=== PATIENT | female | born 1950 | race Caucasian/White ===

== ENCOUNTER 2016-06-08 12:14 | Observation (INO) | payer MEDICARE, OTHER ==
--- NOTE | 2016-06-08 12:33 | ER Document Report ---
ED Medical Screen (RME) - General Stated Complaint: FLANK PAIN Time seen by provider: 12:28 Mode of Arrival: Wheelchair Information source: Patient Notes: 65-year-old female complaining of left thoracic back pain which is tender in the periscapular muscles in the thoracic left-sided muscles. Hurts more when she leans forward and when you palpate the muscle. It does come in spasms. It makes her left arm numb at times. It started at midnight last night Pain better with heat. STabbing pain. Hx PE but does not have the shortness of breath she had then. TRAVEL OUTSIDE OF THE [place] IN LAST 30 DAYS: No - Related Data Allergies/Adverse Reactions: Sulfa (Sulfonamide Antibiotics) Allergy (Verified 06/08/16 12:25) acetaminophen [From Percocet] Adverse Reaction (Verified 06/08/16 12:25) VOMITING oxycodone [From Percocet] Adverse Reaction (Verified 06/08/16 12:25) VOMITING Past Medical History - Past Medical History Cardiac Medical History: Reports: Hx Hypertension Denies: Hx Heart Attack Pulmonary Medical History: Denies: Hx Asthma Neurological Medical History: Denies: Hx Cerebrovascular Accident, Hx Seizures GI Medical History: Denies: Hx Hepatitis, Hx Hiatal Hernia, Hx Ulcer Infectious Medical History: Denies: Hx Hepatitis Past Surgical History: Denies: Hx Mastectomy, Hx Open Heart Surgery, Hx Pacemaker Physical Exam - Vital signs Vitals: Temp Pulse Resp BP Pulse Ox 97.8 F 65 16 136/81 H 100 06/08/16 12:19 06/08/16 12:19 06/08/16 12:19 06/08/16 12:19 06/08/16 12:19 Course - Vital Signs Vital signs: Temp Pulse Resp BP Pulse Ox 97.8 F 65 16 136/81 H 100 06/08/16 12:19 06/08/16 12:19 06/08/16 12:19 06/08/16 12:19 06/08/16 12:19
[2016-06-08] MEDS ORDERED: ONDANSETRON 4 MG TAB.RAPDIS PO ONE (12:36)
[2016-06-08] MEDS ORDERED: HYDROCODONE/ACETAMINOPHEN 5-325 MG TABLET PO ONE (12:37)
[2016-06-08] MEDS ORDERED: MORPHINE SULFATE 10 MG/ML INJ IV ONE (13:16)
[2016-06-08 14:17] LABS: ABSOLUTE BASOPHILS # (AUTO) 0.1 10^3/uL (0.0-0.2); ABSOLUTE EOSINOPHILS # (AUTO) 0.3 10^3/uL (0.0-0.6); ABSOLUTE LYMPHOCYTES (AUTO) 3.5 10^3/uL (0.5-4.7); ABSOLUTE MONOCYTES (AUTO) 0.7 10^3/uL (0.1-1.4); ABSOLUTE NEUT (AUTO) 4.9 10^3/uL (1.7-8.2); BASOPHILS % (AUTO) 0.7 % (0-2); EOSINOPHILS % (AUTO) 2.7 % (0-6); HEMATOCRIT 35.8 % (36.0-47.0); HEMOGLOBIN 12.3 g/dL (12.0-15.5); HGB HCT DIFFERENCE 1.1; LYMPHOCYTES % (AUTO) 37.2 % (13-45); MEAN CORPUSCULAR HEMOGLOBIN 28.2 pg (27.0-33.4); MEAN CORPUSCULAR HGB CONC 34.4 g/dL (32.0-36.0); MEAN CORPUSCULAR VOLUME 82 fl (80-97); MONOCYTES % (AUTO) 7.6 % (3-13); RED BLOOD COUNT 4.37 10^6/uL (3.72-5.28); RED CELL DISTRIBUTION WIDTH 14.4 % (11.5-14.0); SEGMENTED NEUTROPHILS % (AUTO) 51.8 % (42-78); WHITE BLOOD COUNT 9.4 10^3/uL (4.0-10.5)
[2016-06-08 14:30] LABS: ALANINE AMINOTRANSFERASE 26 U/L (9-52); ALBUMIN 3.6 g/dL (3.5-5.0); ALKALINE PHOSPHATASE 89 U/L (38-126); ANION GAP 12 (5-19); ASPARTATE AMINO TRANSFERASE 17 U/L (14-36); BILIRUBIN,TOTAL 0.6 mg/dL (0.2-1.3); BLOOD UREA NITROGEN 13 mg/dL (7-20); CARBON DIOXIDE 26 mmol/L (22-30); CHLORIDE 95 mmol/L (98-107); CREATINE KINASE 38 U/L (30-135); CREATININE RESULT 0.71 mg/dL (0.52-1.25); GLUCOSE 135 mg/dL (75-110); POTASSIUM 3.8 mmol/L (3.6-5.0); SODIUM 132.8 mmol/L (137-145); TOTAL PROTEIN 6.3 g/dL (6.3-8.2)
[2016-06-08 14:41] LABS: PROTHROMBIN TIME 13.3 SEC (11.4-15.4)
[2016-06-08 14:42] LABS: PARTIAL THROMBOPLASTIN TIME 31.1 SEC (23.5-35.8)
[2016-06-08 14:55] LABS: CREATINE KINASE MB < 0.22 ng/mL (<4.55); TROPONIN I < 0.012 ng/mL
[2016-06-08] MEDS ORDERED: NORMAL SALINE 1000 ML 500 ML IV ONE (16:03)
[2016-06-08] MEDS ORDERED: ASPIRIN 81 MG TABLET, CHEWABLE PO ONE (16:03)
--- NOTE | 2016-06-08 16:04 | ER Document Report ---
ED Cardiac - General Chief Complaint: Back Pain Stated Complaint: FLANK PAIN Mode of Arrival: Wheelchair Information source: Patient Notes: 65-year-old female presents to the emergency department complaining of left upper back pain. Patient reports sharp/stabbing pain to left upper back that radiates through to her left front chest and left arm. States pain feels like it is behind her heart. Reports pain is intermittent without aggravating or relieving factors and began yesterday evening. States associated shortness of breath when pain is at its worse. Patient reports history of hypertension, type II diabetes, and bilateral PEs diagnosed approximately 14 months ago currently on Eliquis. Denies fever or recent illness, nausea or vomiting, hemoptysis, or diaphoresis. TRAVEL OUTSIDE OF THE [place] IN LAST 30 DAYS: No - HPI Patient complains to provider of: Chest pain, Other - Back pain Was the onset of pain: Sudden Is the pain a: New problem Chest pain location: Back, Under breast Quality of pain: Sharp Chest pain radiation location: Left arm Severity now: Mild Severity at worst: Moderate Pain level currently: 2 Chest pain precipitating factors: At Rest Cardiac risk factors: Diabetes Positive cardiac history: No Exacerbated by: Denies Relieved by: Nothing Similar symptoms previously: No Recently seen / treated by doctor: No - Related Data Allergies/Adverse Reactions: Sulfa (Sulfonamide Antibiotics) Allergy (Verified 06/08/16 12:25) acetaminophen [From Percocet] Adverse Reaction (Verified 06/08/16 12:25) VOMITING oxycodone [From Percocet] Adverse Reaction (Verified 06/08/16 12:25) VOMITING Home Medications: Current Home Medications Apixaban [Eliquis 2.5 mg Tablet] 2.5 mg PO Q12 06/08/16 [History] Atorvastatin Calcium [Lipitor 10 mg Tablet] 10 mg PO QHS 06/08/16 [History] Linagliptin/Metformin HCl [Jentadueto 2.5 mg-850 mg Tab] 1 tab PO BID 06/08/16 [ History] Valsartan/Hydrochlorothiazide [Valsartan-Hctz 320-12.5 mg Tab] 1 tab PO DAILY [History] Past Medical History - General Information source: Patient - Social History Smoking Status: Never Smoker Frequency of alcohol use: None Drug Abuse: None Lives with: Family Family History: Reviewed & Not Pertinent Patient has suicidal ideation: No Patient has homicidal ideation: No - Past Medical History Cardiac Medical History: Reports: Hx Hypertension, Hx Pulmonary Embolism Denies: Hx Heart Attack Pulmonary Medical History: Denies: Hx Asthma Neurological Medical History: Denies: Hx Cerebrovascular Accident, Hx Seizures Endocrine Medical History: Reports: Hx Diabetes Mellitus Type 2 GI Medical History: Denies: Hx Hepatitis, Hx Hiatal Hernia, Hx Ulcer Infectious Medical History: Denies: Hx Hepatitis Past Surgical History: Reports: Hx Cholecystectomy. Denies: Hx Mastectomy, Hx Open Heart Surgery, Hx Pacemaker - Immunizations Hx Diphtheria, Pertussis, Tetanus Vaccination: Yes Review of Systems - Review of Systems Constitutional: No symptoms reported EENT: No symptoms reported Cardiovascular: See HPI Respiratory: See HPI Gastrointestinal: No symptoms reported Genitourinary: No symptoms reported Female Genitourinary: No symptoms reported Musculoskeletal: No symptoms reported Skin: No symptoms reported Hematologic/Lymphatic: No symptoms reported Neurological/Psychological: No symptoms reported -: Yes All other systems reviewed and negative Physical Exam - Vital signs Vitals: Temp Pulse Resp BP Pulse Ox 97.8 F 65 16 136/81 H 100 06/08/16 12:19 06/08/16 12:19 06/08/16 12:19 06/08/16 12:19 06/08/16 12:19 Interpretation: Normal - General General appearance: Appears well, Alert In distress: None - HEENT Head: Normocephalic, Atraumatic Eyes: Normal Pupils: PERRL - Respiratory Respiratory status: No respiratory distress Chest status: Nontender Breath sounds: Normal - CTAB Chest palpation: Normal - Cardiovascular Rhythm: Regular Heart sounds: Normal auscultation Murmur: No Pulses: Normal: Radial, Posterior tibial, Dorsalis pedis Normal capillary refill: Yes - Abdominal Inspection: Normal Distension: No distension Bowel sounds: Normal Tenderness: Nontender Organomegaly: No organomegaly - Back Back: Normal, Nontender - Extremities General upper extremity: Normal inspection, Nontender, Normal color, Normal ROM , Normal strength, Normal temperature. No: Tender, Edema General lower extremity: Normal inspection, Nontender, Normal color, Normal ROM , Normal strength, Normal temperature, Normal weight bearing. No: Tender, Edema , Ashok's sign - Neurological Neuro grossly intact: Yes Cognition: Normal Orientation: AAOx4 [place] Coma Scale Eye Opening: Spontaneous Ronald Coma Scale Verbal: Oriented Ronald Coma Scale Motor: Obeys Commands [place] Coma Scale Total: 15 Speech: Normal Motor strength normal: LUE, RUE, LLE, RLE Sensory: Normal - Psychological Associated symptoms: Normal affect, Normal mood - Skin Skin Temperature: Warm Skin Moisture: Dry Skin Color: Normal Course - Re-evaluation Re-evalutation: 06/08/16 16:10 Patient hemodynamically stable, in no distress, afebrile. Pain resolved after dose of morphine. No significant findings on labs and negative cardiac enzymes. No acute PE, aneurysm, or dissection, on CTA. Patient presentation and findings discussed with patient's primary care provider Dr. Roa who agrees to assume care, evaluate patient in the ED, and admit to telemetry observation unit. Findings and plan discussed with patient and family member who verbalize understanding and agree with plan. - Vital Signs Vital signs: Temp Pulse Resp BP Pulse Ox 97.5 F 61 14 116/70 98 06/08/16 16:55 06/08/16 17:41 06/08/16 16:55 06/08/16 16:55 06/08/16 16:55 - Laboratory Result Diagrams: 06/08/16 13:58 06/08/16 13:58 Laboratory results interpreted by me: 06/08/16 06/08/16 13:58 13:58 Hct 35.8 L RDW 14.4 H Sodium 132.8 L Chloride 95 L Glucose 135 H - Diagnostic Test Radiology reviewed: Image reviewed, Reports reviewed - EKG Interpretation by Sc EKG shows normal: Sinus rhythm, [place], Intervals, QRS Complexes, ST-T Waves - Nonspecific T-wave changes. No ST elevation Rate: Normal Rhythm: NSR When compared to previous EKG there are: Changes noted Discharge - Discharge Clinical Impression: Chest pain Qualifiers: Chest pain type: unspecified Qualified Code(s): R07.9 - Chest pain, unspecified Condition: Stable Disposition: ADMITTED OBSERVATION Admitting Provider: Crispin Unit Admitted: Telemetry
--- NOTE | 2016-06-08 16:58 | EKG REPORT ---
SEVERITY:- ABNORMAL ECG - SINUS RHYTHM LVH BY VOLTAGE NONSPECIFIC T ABNORMALITIES, INFERIOR LEADS : Confirmed by: Ronda Willard MD 08-Jun-2016 16:57:24
[2016-06-08] MEDS ORDERED: INFLUENZA ADLT QUAD (36MOS+) 2016-17 VAC 0.5 ML SYR IM PRN (18:12)
[2016-06-08] MEDS ORDERED: CYCLOBENZAPRINE HCL 10 MG TABLET PO PRN (18:46)
[2016-06-08] MEDS ORDERED: GLUCAGON,HUMAN RECOMB 1 MG INJ IM PRN (18:48)
[2016-06-08] MEDS ORDERED: DEXTROSE 40% GEL 15 GM TUBE PO PRN ×2 (18:48)
[2016-06-08] MEDS ORDERED: DEXTROSE 50%-WATER 25 GM/50 ML DISP.SYRIN IV PRN ×2 (18:48)
[2016-06-08] MEDS ORDERED: INSULIN LISPRO 100 UNIT/ML 3 ML VIAL SUBCUT PRN (18:48)
[2016-06-08] MEDS: HYDROCODONE/ACETAMINOPHEN 5-325 MG TABLET PO PRN (19:13)
--- NOTE | 2016-06-08 19:19 | PDOC H&P ---
History of Present Illness Admission Date/PCP: 06/08/16 16:28 TOMI EFRENDANDYGreg Patient complains of: Left upper back pain History of Present Illness: REVA HIGGINS is a 65 year old female with multiple medical issues including pulmonary embolism on Eliquis therapy. She presented to ED on wheelchair with complain of left upper back pain several hours prior to presentation. Patient reported that pain is worsen with leaning forward, improved with application of heat pad. She denied any significant associated SOB, palpitation, diaphoresis, nausea or vomiting. Her initial evaluation in the ED was significant for reproducible, localized pain to left periscapular region. She was initially management with IV Morphine and oral Blanco. She reported improvement in her pain subsequently. Her CTA chest was unrevealing for acute or recurrent Pulmonary Embolism. No identifiable aortic dilatation, dissection or aneurysm. Due to her associated comorbidities including hypertension, hyperlipidemia, obstructive sleep apnea and diabetes mellitus type 2 there was concern expressed by ED provider regarding discharging patient home without further evaluation for possible ACS. In view of her circumstance she has been accepted to my service on observation bed status. Past Medical History Cardiac Medical History: Reports: Hypertension Denies: Myocardial Infarction Pulmonary Medical History: Denies: Asthma Neurological Medical History: Denies: Seizures Endocrine Medical History: Reports: Diabetes Mellitus Type 2 GI Medical History: Denies: Hepatitis, Hiatal Hernia Psychiatric Medical History: Denies: Depression Hematology: Denies: Anemia, Sickle Cell Disease Past Surgical History Past Surgical History: Reports: Cholecystectomy Denies: Amputation, Mastectomy, Pacemaker Social History Smoking Status: Never Smoker Frequency of Alcohol Use: Rare Hx Recreational Drug Use: No Hx Prescription Drug Abuse: No - Advance Directive Resuscitation Status: Full Code Family History Family History: Reviewed & Not Pertinent Parental Family History Reviewed: Yes Children Family History Reviewed: Yes Sibling(s) Family History Reviewed.: Yes Medication/Allergy Home Medications: Apixaban [Eliquis 2.5 mg Tablet] 2.5 mg PO Q12 06/08/16 Atorvastatin Calcium [Lipitor 10 mg Tablet] 10 mg PO QHS 06/08/16 Linagliptin/Metformin HCl [Jentadueto 2.5 mg-850 mg Tab] 1 tab PO BID 06/08/16 Valsartan/Hydrochlorothiazide [Valsartan-Hctz 320-12.5 mg Tab] 1 tab PO DAILY 01 /10/17 Allergies/Adverse Reactions: Sulfa (Sulfonamide Antibiotics) Allergy (Verified 06/08/16 12:25) acetaminophen [From Percocet] Adverse Reaction (Verified 06/08/16 12:25) VOMITING oxycodone [From Percocet] Adverse Reaction (Verified 06/08/16 12:25) VOMITING Review of Systems All systems: reviewed and no additional remarkable complaints except as stated Physical Exam Vital Signs: Temp Pulse Resp BP Pulse Ox 97.5 F 61 14 116/70 98 06/08/16 16:55 06/08/16 17:41 06/08/16 16:55 06/08/16 16:55 06/08/16 16:55 Intake & Output 06/07/16 06/08/16 06/09/16 06:59 06:59 06:59 Intake Total 0 Balance 0 General appearance: PRESENT: no acute distress, cooperative, obese Head exam: PRESENT: atraumatic, normocephalic Eye exam: PRESENT: conjunctiva pink, EOMI, PERRLA. ABSENT: scleral icterus Ear exam: PRESENT: normal external ear exam Mouth exam: PRESENT: moist, tongue midline Throat exam: ABSENT: post pharyngeal erythema, tonsillar erythema, tonsillar exudate, tonsillogmegaly, other Neck exam: ABSENT: carotid bruit, full ROM, JVD, lymphadenopathy, meningismus, tenderness, thyromegaly, tracheal deviation, tracheostomy, other Respiratory exam: ABSENT: accessory muscle use, chest wall tenderness, clear to auscultation jhon, crackles, decreased breath sounds, prolonged expiratory phas, rales, retraction, rhonchi, stridor, symmetrical, tachypnea, unlabored, wheezes , other Cardiovascular exam: ABSENT: bradycardia, clicks, diastolic murmur, gallop, irregular rhythm, RRR, rubs, +S1, +S2, systolic murmur, tachycardia, other Pulses: PRESENT: normal dorsalis pedis pul, +2 pedal pulses bilateral Vascular exam: PRESENT: normal capillary refill GI/Abdominal exam: PRESENT: normal bowel sounds, soft. ABSENT: distended, guarding, mass, organolmegaly, rebound, tenderness Rectal exam: PRESENT: deferred Extremities exam: PRESENT: full ROM. ABSENT: left AKA, right AKA, left BKA, right BKA, calf tenderness, joint swelling, pedal edema, tenderness, other Musculoskeletal exam: PRESENT: ambulatory, full ROM, normal inspection Additional comments: There is elicited tenderness to palpation over left scapular muscle region with palpable muscle spasm. Neurological exam: PRESENT: alert, awake, oriented to person, oriented to place , oriented to time, oriented to situation, CN II-XII grossly intact. ABSENT: motor sensory deficit Psychiatric exam: PRESENT: appropriate affect, normal mood. ABSENT: homicidal ideation, suicidal ideation Skin exam: PRESENT: dry, intact, warm. ABSENT: cyanosis, rash Results Impressions: Chest/Abdomen CTA 06/08/16 13:16 IMPRESSION: Minimal bibasilar atelectasis Diffuse thoracic spondylotic change throughout the thoracic spine No CT angio evidence of acute pulmonary emboli or thoracic aortic dissection Assessment & Plan - Diagnosis (1) Upper back pain on left side Is this a current diagnosis for this admission?: YesPlan: Rule out for any acute coronary syndrome in view of comorbidities. (2) Trapezius muscle spasm Is this a current diagnosis for this admission?: YesPlan: Start on Blanco and Cyclobenzaprine therapy. Encourage adequate oral hydration. Rest as tolerated. (3) HTN (hypertension) Qualifiers: Hypertension type: essential hypertension Qualified Code(s): I10 - Essential (primary) hypertension Is this a current diagnosis for this admission?: Yes (4) HLD (hyperlipidemia) Qualifiers: Hyperlipidemia type: pure hypercholesterolemia Qualified Code(s): E78.00 - Pure hypercholesterolemia, unspecified; E78.0 - Pure hypercholesterolemia Is this a current diagnosis for this admission?: Yes (5) Diabetes mellitus type 2 in obese Is this a current diagnosis for this admission?: Yes (6) Pulmonary embolism on long-term anticoagulation therapy Is this a current diagnosis for this admission?: Yes (7) Obstructive sleep apnea of adult Is this a current diagnosis for this admission?: Yes (8) Osteoarthritis of multiple joints Qualifiers: Osteoarthritis type: primary Qualified Code(s): M15.0 - Primary generalized (osteo)arthritis Is this a current diagnosis for this admission?: Yes - Time Time Spent: 50 to 70 Minutes Medications reviewed and adjusted accordingly: Yes Anticipated discharge: Home - Inpatient Certification Based on my medical assessment, after consideration of the patient's comorbidities, presenting symptoms, or acuity I expect that the services needed warrant INPATIENT care.: No I certify that my determination is in accordance with my understanding of Medicare's requirements for reasonable and necessary INPATIENT services [42 CFR 412.3e].: No Post Hospital Care: D/C Alcoholism Worker Documentation - Plan Summary Plan Summary: see admitting physician orders.
[2016-06-08] MEDS ORDERED: ONDANSETRON HCL INJ/PF 4 MG/2 ML SDV IV PRN (20:18)
[2016-06-08 20:51] LABS: CREATINE KINASE MB < 0.22 ng/mL (<4.55); TROPONIN I < 0.012 ng/mL
[2016-06-08] MEDS: APIXABAN 2.5 MG TABLET PO SCH (21:24)
[2016-06-08] MEDS ORDERED: ATORVASTATIN CALCIUM 10 MG TABLET PO SCH (22:00)
[2016-06-09 03:20] LABS: CREATINE KINASE MB < 0.22 ng/mL (<4.55); TROPONIN I < 0.012 ng/mL
[2016-06-09] MEDS: HYDROCODONE/ACETAMINOPHEN 5-325 MG TABLET PO PRN ×2 (03:38→11:08)
[2016-06-09] MEDS ORDERED: LANSOPRAZOLE 30 MG TAB.RAP.DR PO SCH (06:00)
[2016-06-09 09:16] LABS: CREATINE KINASE MB < 0.22 ng/mL (<4.55); TROPONIN I < 0.012 ng/mL
[2016-06-09] MEDS: APIXABAN 2.5 MG TABLET PO SCH (09:54)
[2016-06-09] MEDS ORDERED: VALSARTAN PO SCH (10:00)
[2016-06-09] MEDS ORDERED: VALSARTAN 160 MG TABLET PO SCH (10:00)
[2016-06-09] MEDS ORDERED: HYDROCHLOROTHIAZIDE PO SCH (10:00)
[2016-06-09] MEDS ORDERED: [UNRECOGNIZED DRUG - OTHER] PO SCH (10:00)
[2016-06-09] MEDS ORDERED: METFORMIN HCL PO SCH (10:00)
[2016-06-09] MEDS ORDERED: LINAGLIPTIN PO SCH ×2 (10:00→17:00)
[2016-06-09] MEDS ORDERED: HYDROCHLOROTHIAZIDE 12.5 MG CAPSULE PO SCH (10:00)
--- NOTE | 2016-06-09 13:40 | EKG REPORT ---
SEVERITY:- BORDERLINE ECG - SINUS RHYTHM BORDERLINE LEFT AXIS DEVIATION BORDERLINE T ABNORMALITIES, INFERIOR LEADS : Confirmed by: Ronda Willard MD 09-Jun-2016 13:38:37
--- NOTE | 2016-06-09 14:33 | Physician Advisory Note ---
Physician Advisor ProgressNote .: Pursuant to the plan for [facility], I have reviewed the medical record for this patient. Physician Advisor Statement: Don't forget to explicitly state what you believe is the cause of the CP. - Coders aren't allowed to infer anything, so have to query if causes are not spelled out as causes. Thanks! CK
--- NOTE | 2016-06-09 15:21 | PDOC DISCHARGE SUMMARY ---
General - Admit/Disc Date/PCP Admission Date/Primary Care Provider: 06/08/16 18:39 TOMI MANJINDER Discharge Date: 06/09/16 - Discharge Diagnosis (1) Upper back pain on left side Is this a current diagnosis for this admission?: YesSummary: Patient's reported chest pain is most likely a result of trapezius muscle spasm musculoskeletal pain (2) Trapezius muscle spasm Is this a current diagnosis for this admission?: YesSummary: most likely source of her reported chest pain. (3) HTN (hypertension) Is this a current diagnosis for this admission?: Yes (4) HLD (hyperlipidemia) Is this a current diagnosis for this admission?: Yes (5) Diabetes mellitus type 2 in obese Is this a current diagnosis for this admission?: Yes (6) Pulmonary embolism on long-term anticoagulation therapy Is this a current diagnosis for this admission?: Yes (7) Obstructive sleep apnea of adult Is this a current diagnosis for this admission?: Yes (8) Osteoarthritis of multiple joints Is this a current diagnosis for this admission?: Yes - Additional Information Resuscitation Status: Full Code Discharge Diet: As Tolerated Discharge Activity: Activity As Tolerated Home Medications: Apixaban [Eliquis 2.5 mg Tablet] 2.5 mg PO Q12 06/08/16 Atorvastatin Calcium [Lipitor 10 mg Tablet] 10 mg PO QHS 06/08/16 Linagliptin/Metformin HCl [Jentadueto 2.5 mg-850 mg Tab] 1 tab PO BID 06/08/16 Valsartan/Hydrochlorothiazide [Valsartan-Hctz 320-12.5 mg Tab] 1 tab PO DAILY Cyclobenzaprine HCl [Flexeril 10 mg Tablet] 5 mg PO Q8HP PRN #14 tablet Hydrocodone/Acetaminophen [[place] 5-325 mg Tablet] 1 tab PO Q6HP PRN #20 tablet 06/09/16 Ondansetron HCl [Zofran 4 mg Tablet] 1 tab PO Q4H PRN #10 tablet 06/09/16 History of Present Illness History of Present Illness: REVA HIGGINS is a 65 year old female with multiple medical issues including pulmonary embolism on Eliquis therapy. She presented to ED on wheelchair with complain of left upper back pain several hours prior to presentation. Patient reported that pain is worsen with leaning forward, improved with application of heat pad. She denied any significant associated SOB, palpitation, diaphoresis, nausea or vomiting. Her initial evaluation in the ED was significant for reproducible, localized pain to left periscapular region. She was initially management with IV Morphine and oral [place]. She reported improvement in her pain subsequently. Her CTA chest was unrevealing for acute or recurrent Pulmonary Embolism. No identifiable aortic dilatation, dissection or aneurysm. Due to her associated comorbidities including hypertension, hyperlipidemia, obstructive sleep apnea and diabetes mellitus type 2 there was concern expressed by ED provider regarding discharging patient home without further evaluation for possible ACS. In view of her circumstance she has been accepted to my service on observation bed status. Hospital Course Hospital Course: Serial cardiac enzymes and repeat EKG did not support any significant cardiac source gfor her chest pain. Her physical examination did revealed trapezius muscle spasm. Patient reported improvement in her symptoms with cyclobenzaprine and opiate therapy. Her reported nausea after [place] administration did improve with Zofran usage. She remain pain free presently and agreeable to discharge plan. She will be discharged home today and follow up in office as instructed. Physical Exam Vital Signs: Temp Pulse Resp BP Pulse Ox 98.1 F 66 20 111/47 L 98 06/09/16 08:02 06/09/16 14:00 06/09/16 08:02 06/09/16 08:02 06/09/16 08:02 Intake & Output 06/08/16 06/09/16 06/10/16 06:59 06:59 06:59 Intake Total 640 Balance 640 General appearance: PRESENT: no acute distress, well-developed, well-nourished Head exam: PRESENT: atraumatic, normocephalic Eye exam: PRESENT: conjunctiva pink, EOMI, PERRLA. ABSENT: scleral icterus Ear exam: PRESENT: normal external ear exam Mouth exam: PRESENT: moist, tongue midline Teeth exam: ABSENT: dental caries, dental tenderness, edentulous, poor dentation , other Throat exam: ABSENT: post pharyngeal erythema, tonsillar erythema, tonsillar exudate, tonsillogmegaly, other Neck exam: PRESENT: full ROM. ABSENT: carotid bruit, JVD, lymphadenopathy, thyromegaly Respiratory exam: ABSENT: accessory muscle use, chest wall tenderness, clear to auscultation jhon, crackles, decreased breath sounds, prolonged expiratory phas, rales, retraction, rhonchi, stridor, symmetrical, tachypnea, unlabored, wheezes , other Cardiovascular exam: PRESENT: RRR. ABSENT: diastolic murmur, rubs, systolic murmur Pulses: PRESENT: normal dorsalis pedis pul, +2 pedal pulses bilateral Vascular exam: PRESENT: normal capillary refill GI/Abdominal exam: PRESENT: normal bowel sounds, soft. ABSENT: distended, guarding, mass, organolmegaly, rebound, tenderness Rectal exam: PRESENT: deferred Extremities exam: PRESENT: full ROM Musculoskeletal exam: PRESENT: ambulatory, full ROM, normal inspection Neurological exam: PRESENT: alert, awake, oriented to person, oriented to place , oriented to time, oriented to situation, CN II-XII grossly intact. ABSENT: motor sensory deficit Psychiatric exam: PRESENT: appropriate affect, normal mood. ABSENT: homicidal ideation, suicidal ideation Results Laboratory Results: 06/08/16 06/08/16 06/09/16 20:01 20:01 02:00 Creatine Kinase 43 36 CK-MB (CK-2) < 0.22 Troponin I < 0.012 06/09/16 06/09/16 06/09/16 02:00 08:20 08:20 Creatine Kinase 38 CK-MB (CK-2) < 0.22 < 0.22 Troponin I < 0.012 < 0.012 Impressions: Chest/Abdomen CTA 06/08/16 13:16 IMPRESSION: Minimal bibasilar atelectasis Diffuse thoracic spondylotic change throughout the thoracic spine No CT angio evidence of acute pulmonary emboli or thoracic aortic dissection Qualifiers PATEINT BEING DISCHARGED WITH ANY OF THE FOLLOWING DIAGNOSIS?: No Plan Discharge Plan: See attending physician discharge orders. Time Spent: Less than 30 Minutes
[2016-06-09 16:22] VITALS: BP 99/47
[2016-06-09] MEDS ORDERED: METFORMIN PO SCH (17:00)
== END 2016-06-09 17:11 | disposition home or self-care (01) ==
LOC: ER 12:14 → EH 16:28 → UNDOADMOB 16:28 → EH 17:20 → 4S 17:20
PROVIDERS: ADMIT Internal Medicine Geriatric Medicine; ATTEND Internal Medicine Geriatric Medicine
DX: M54.6 Pain in thoracic spine (principal); M62.830 Muscle spasm of back; I10 Essential (primary) hypertension; E78.5 Hyperlipidemia, unspecified; E11.9 Type 2 diabetes mellitus without complications; E66.9 Obesity, unspecified; Z86.711 Personal history of pulmonary embolism; Z79.01 Long term (current) use of anticoagulants; Z79.84 Long term (current) use of oral hypoglycemic drugs; G47.33 Obstructive sleep apnea (adult) (pediatric); M19.90 Unspecified osteoarthritis, unspecified site
CPT/HCPCS: 93005 ×2; 99285; 96361; 96374; 36415 ×2; 82553 ×2; 82962 ×2; 82550 ×2; 85025; 85610; 85730; 80053; 84484 ×2; 71275; 93010 ×2; G0378 ×2; A9270 ×11; J2270; J2405; J7030; S0119

== ENCOUNTER 2017-02-03 07:11 | Day surgery (SDC) | payer MEDICARE, OTHER ==
[~2017-02-03 07:11] MED LIST: KETOROLAC TROMETHAMINE 0.45% 4 DROP/0.4 ML DROPERETTE OS PRN
[2017-02-03] MEDS: BESIFLOXACIN HCL 0.6% OPH SUSP 5 ML BOTTLE OS PRN ×4 (07:17→08:29)
[2017-02-03] MEDS: TROPICAMIDE 1% OPH SOLN 3 ML OS PRN ×3 (07:17→07:37)
[2017-02-03] MEDS: CYCLOPENTOLATE 0.2%/PHENYLEPHRINE 1% OPH SOLN 2 ML OS PRN ×3 (07:17→07:37)
[2017-02-03] MEDS: TETRACAINE HCL 0.5% OPH SOLN 2 ML OS PRN ×4 (07:18→07:59)
[2017-02-03] MEDS ORDERED: LIDOCAINE 1% INJ-PF (10 MG/ML) 30 ML SDV ONE (07:23)
[2017-02-03] MEDS ORDERED: CHONDR SU A NA/HYALUR INTRAOC KIT (SURGICARE) ONE (07:23)
[2017-02-03] MEDS ORDERED: MIDAZOLAM 2 MG/2 ML INJ ONE (07:51)
[2017-02-03] MEDS ORDERED: FENTANYL CITRATE INJ/PF 100 MCG/2 ML AMPUL ONE (07:52)
[2017-02-03] MEDS: PHENYLEPHRINE/KETOROLAC 1%-0.3% 4 ML VIAL ONE ×2 (08:12)
[2017-02-03] MEDS ORDERED: ONDANSETRON HCL INJ/PF 4 MG/2 ML SDV ONE (09:32)
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
--- NOTE | 2017-02-03 16:22 | [facility] OPERATIVE REPORT E ---
[facility] Operative Report NAME: REVA HIGGINS AGE: 66Y DATE OF SURGERY: 02/03/2017 ROOM: PREOPERATIVE DIAGNOSES: 1. CATARACT, LEFT EYE. 2. PUPIL MIOSIS OF THE LEFT EYE. POSTOPERATIVE DIAGNOSES: 1. CATARACT, LEFT EYE. 2. PUPIL MIOSIS OF THE LEFT EYE. OPERATION: Complex cataract extraction; use of the Malyugin ring due to poor pupillary dilation. SURGEON: NARGIS WOOD M.D. ANESTHESIA: Topical. PROCEDURE: After obtaining appropriate consent, the patient's left eye was prepped and draped in sterile fashion as well as the surgeon in a sterile manner and cataract surgery was started. First a paracentesis blade was used to make a small side-port incision. Viscoelastic was used to inflate the anterior chamber. Next a 2.4 mm incision was made with the paracentesis blade. A continuous capsulorrhexis incision was made using a cystotome and Utrata forceps. Following this hydrodissection was carried out to make the lens fully loose and mobile and it was rotated 90 degrees. Following this, a fndkzb-uov-gjeqquk technique was used to phacoemulsify the lens with a CDE of 8.51. The remaining cortex was removed with irrigation/aspiration. Provisc was instilled into the capsular bag to inflate the bag. A SN60WF, 18.5 diopter lens was placed. The remaining viscoelastic material was removed with irrigation/aspiration. Following this, a 10-0 nylon suture was used to close the incision and it was found to be watertight. Vigamox was instilled in the eye and a protective shield was placed over the eye. The patient returned to the postoperative recovery in stable condition. Prior to making the capsulorrhexis, a Malyugin ring was inserted due to a very miotic pupil. This was removed at the end of the case. DICTATING PHYSICIAN: NARGIS WOOD M.D. [id number] PHY#: [id number] ID: [id number] JOB#: [id number] ACCT: [id number] cc:NARGIS WOOD M.D. >
== END 2017-02-03 09:11 | disposition home or self-care (01) ==
LOC: SC 07:11
PROVIDERS: ATTEND Internal Medicine
PROC: 08RK3JZ Replacement of Left Lens with Synthetic Substitute, Percutaneous Approach (ICD-10-PCS; principal; 2017-02-03 08:00)
DX: H25.813 Combined forms of age-related cataract, bilateral (principal); H57.03 Miosis; I10 Essential (primary) hypertension; E11.9 Type 2 diabetes mellitus without complications; E78.00 Pure hypercholesterolemia, unspecified; M19.90 Unspecified osteoarthritis, unspecified site; E78.5 Hyperlipidemia, unspecified; E66.9 Obesity, unspecified; Z88.2 Allergy status to sulfonamides; Z88.5 Allergy status to narcotic agent; Z79.01 Long term (current) use of anticoagulants; Z79.899 Other long term (current) drug therapy; Z86.711 Personal history of pulmonary embolism; Z68.36 Body mass index [BMI] 36.0-36.9, adult
CPT/HCPCS: 66982; 82962; V2632; J2250; J3490 ×2; A9270; J3010; J2405; C9447; 142

== ENCOUNTER → 2017-02-11 | Outpatient (CLI) | payer MEDICARE, OTHER ==
--- NOTE | 2017-02-11 13:10 | WOMENS IMAGING REPORT ---
EXAM DESCRIPTION: 3D SCREENING MAMMO BILAT COMPLETED DATE/TIME: 02/11/2017 12:52 pm REASON FOR STUDY: SCREENING MAMMO Z12.31 ENCNTR SCREEN MAMMOGRAM FOR MALIGNANT NEOPLASM OF SHANDA COMPARISON: 2015 TECHNIQUE: Standard craniocaudal and mediolateral oblique views of each breast recorded using digita l acquisition and breast tomosynthesis. LIMITATIONS: None. FINDINGS: No masses, calcifications or architectural distortion. No areas of suspicion. Read with the assistance of CAD. .[facility] - R2 Cenova Version 1.3 .[facility] Imaging - R2 Cenova Version 1.3 .[facility] Imaging - R2 Cenova Version 2.4 .[facility] [place] [place] - R2 Cenova Version 2.4 .[facility] - R2 Storyboard Artist Version 9.2 IMPRESSION: NORMAL MAMMOGRAM. BIRADS 1. BREAST DENSITY: b. There are scattered areas of fibroglandular density. BIRAD: 1 NEGATIVE RECOMMENDATION: ROUTINE SCREENING COMMENT: The patient has been notified of the results by letter per SA requirements. Additional no tification policies are in place for contacting patient with suspicious or incomplete findings. Quality ID #[id number]: The [employer] recommends an annual screening mammogram for women aged 40 years or over. This facility utilizes a reminder system to ensure that all patients receive reminder letters, and/or direct phone calls for appointments. This includes reminders for routine scr eening mammograms, diagnostic mammograms, or other Breast Imaging Interventions when appropriate. Th is patient will be placed in the appropriate reminder system. The [employer] (ACR) has developed recommendations for screening MRI of the breast s in certain patient populations, to be used in conjunction with mammography. Breast MRI surveillanc e may be appropriate for women with more than 20% lifetime risk of developing breast cancer as deter mined by genetic testing, significant family history of the disease, or history of mantle radiation f or Hodgkins Disease. ACR Practice Guidelines 2008. DBT Technology DBT is a type of tomographic mammography. With conventional mammography, overlapping breast tissue ma y make lesions difficult to detect, even with good compression. DBT uses an x-ray tube that rotates a round the breast, taking images at different angles. These images are then combined to create thin sl ices of the breast that the radiologist can view as a 3D reconstruction. The [employer] unit can perform full-field digital mammograms (2D imaging); or DBT (3D imaging); or both, in a combination mode that quickly performs both the mammogram and the tomosynthesis scan while the breast is still compressed. PQRS 6045F: Fluoroscopic imaging is not utilized for breast tomosynthesis. TECHNICAL DOCUMENTATION: FINDING NUMBER: (1) ASSESSMENT: (1) JOB ID: [id number] [employer]- All Rights Reserved
== END ==
LOC: WI 12:31
PROVIDERS: ATTEND Internal Medicine Geriatric Medicine
DX: Z12.31 Encounter for screening mammogram for malignant neoplasm of breast (principal)
CPT/HCPCS: 77063; G0202; 77067

== ENCOUNTER 2017-03-03 09:48 | Day surgery (SDC) | payer MEDICARE, OTHER ==
[~2017-03-03 09:48] MED LIST changes: +CHONDR SU A NA/HYALUR INTRAOC KIT (SURGICARE) ONE; +KETOROLAC TROMETHAMINE 0.45% 4 DROP/0.4 ML DROPERETTE OD PRN; -KETOROLAC TROMETHAMINE 0.45% 4 DROP/0.4 ML DROPERETTE OS PRN; +LIDOCAINE 1% INJ-PF (10 MG/ML) 30 ML SDV ONE; +PHENYLEPHRINE/KETOROLAC 1%-0.3% 4 ML VIAL ONE
[2017-03-03] MEDS: TETRACAINE HCL 0.5% OPH SOLN 2 ML OD PRN ×3 (10:06→10:39)
[2017-03-03] MEDS: CYCLOPENTOLATE 0.2%/PHENYLEPHRINE 1% OPH SOLN 2 ML OD PRN ×4 (10:07→10:29)
[2017-03-03] MEDS: TROPICAMIDE 1% OPH SOLN 3 ML OD PRN ×3 (10:07→10:29)
[2017-03-03] MEDS: BESIFLOXACIN HCL 0.6% OPH SUSP 5 ML BOTTLE OD PRN ×2 (10:08→11:06)
[2017-03-03] MEDS ORDERED: FENTANYL CITRATE INJ/PF 100 MCG/2 ML AMPUL ONE (10:26)
[2017-03-03] MEDS ORDERED: MIDAZOLAM 2 MG/2 ML INJ ONE (10:26)
--- NOTE | 2017-03-03 20:22 | [facility] OPERATIVE REPORT E ---
[facility] Operative Report NAME: REVA HIGGINS AGE: 66Y DATE OF SURGERY: 03/03/2017 ROOM: PREOPERATIVE DIAGNOSES: 1. Cataract, right eye. 2. Pupil miosis, right eye. POSTOPERATIVE DIAGNOSES: 1. Cataract, right eye. 2. Pupil miosis, right eye. OPERATION: Complex cataract extraction with use of a Malyugin ring due to poor pupillary dilation. SURGEON: NARGIS WOOD M.D. ANESTHESIA: Topical. PROCEDURE: After obtaining appropriate consent, the patient's right eye was prepped and draped in sterile fashion as well as the surgeon in a sterile manner and cataract surgery was started. First a paracentesis blade was used to make a small side-port incision. Viscoelastic was used to inflate the anterior chamber. Next a 2.4 mm incision was made with the paracentesis blade. A continuous capsulorrhexis incision was made using a cystotome and Utrata forceps. Following this hydrodissection was carried out to make the lens fully loose and mobile and it was rotated 90 degrees. Following this, a ysvcov-rdr-rkfqjqb technique was used to phacoemulsify the lens with a CDE of 10.04. The remaining cortex was removed with irrigation/aspiration. Provisc was instilled into the capsular bag to inflate the bag. A SN60WF, 20.5 diopter lens was placed. The remaining viscoelastic material was removed with irrigation/aspiration. Following this, a 10-0 nylon suture was used to close the incision and it was found to be watertight. Vigamox was instilled in the eye and a protective shield was placed over the eye. The patient returned to the postoperative recovery in stable condition. Prior to making *------* a Malyugin ring was inserted; this was due to poor pupillary dilation. This was removed at the end of the case. DICTATING PHYSICIAN: NARGIS WOOD M.D. [id number] 2011 PHY#: [id number] 2008 ID: [id number] JOB#: [id number] ACCT: [id number] cc:NARGIS WOOD M.D. >
--- NOTE | 2017-03-03 20:27 | DISCHARGE SUMMARY E ---
Discharge Summary NAME: REVA HIGGINS : 1950 AGE: 66Y ADMITTED: 03/03/2017 DISCHARGED: 03/03/2017 HISTORY OF PRESENT ILLNESS AND HOSPITAL COURSE: This is a 65-year-old female who underwent cataract extraction complex of the right eye. DIAGNOSES: 1. Cataract, right eye. 2. Pupil miosis requiring a Malyugin ring. HOSPITAL COURSE: The patient underwent surgery because she was having difficulty seeing fine print and TV. DISCHARGE INSTRUCTIONS: 1. She should be on a regular diet. 2. No bending at the waist and no heavy lifting. 3. She should use her Besivance, Ilevro, and Durezol at 3 p.m. and 8 p.m. and sleep with a rigid shield. 4. I will see her for her 1-day postoperative tomorrow. DICTATING PHYSICIAN: NARGIS WOOD M.D. [id number] 2017 PHY#: [id number] 2008 ID: [id number] JOB#: [id number] ACCT: [id number] cc:NARGIS WOOD M.D. >
== END 2017-03-03 11:38 | disposition home or self-care (01) ==
LOC: SC 09:48
PROVIDERS: ATTEND Internal Medicine
PROC: 08RJ3JZ Replacement of Right Lens with Synthetic Substitute, Percutaneous Approach (ICD-10-PCS; principal; 2017-03-03 11:00)
DX: H25.811 Combined forms of age-related cataract, right eye (principal); H57.03 Miosis; Z96.1 Presence of intraocular lens; I10 Essential (primary) hypertension; E11.9 Type 2 diabetes mellitus without complications; Z88.2 Allergy status to sulfonamides; Z88.5 Allergy status to narcotic agent; Z79.01 Long term (current) use of anticoagulants
CPT/HCPCS: 66982; 82962; V2632; J2250; J3490 ×2; A9270; J3010; C9447; 142

== ENCOUNTER → 2018-02-21 | Outpatient (CLI) | payer MEDICARE, OTHER ==
--- NOTE | 2018-02-21 11:16 | WOMENS IMAGING REPORT ---
EXAM DESCRIPTION: 3D SCREENING MAMMO BILAT COMPLETED DATE/TIME: 02/21/2018 10:30 am REASON FOR STUDY: BILATERAL SCREENING MAMMO 3D/Z12.31 Z12.31 ENCNTR SCREEN MAMMOGRAM FOR MALIGNANT NEOPLASM OF SHANDA COMPARISON: 2015, 2016 TECHNIQUE: Standard craniocaudal and mediolateral oblique views of each breast recorded using digita l acquisition and breast tomosynthesis. LIMITATIONS: None. FINDINGS: Findings present which are benign by mammographic criteria. No suspicious masses, calcifi cations or architectural distortion. Pertinent benign findings: Stable calcifications. Read with the assistance of CAD. .[facility] - R2 Cenova Version 1.3 .[facility] Imaging - R2 Cenova Version 1.3 .[facility] Imaging - R2 Cenova Version 2.4 .[facility] [place] - R2 Cenova Version 2.4 .[facility] - R2 Process Technician Version 9.2 Benign mammographic findings may include one or more of the following: Smooth masses, popcorn/rim/co arse calcifications, asymmetries, post-procedure changes, and lesions with long-standing stability. IMPRESSION: BENIGN MAMMOGRAPHIC FINDINGS. BIRADS 2 BREAST DENSITY: b. There are scattered areas of fibroglandular density. BIRAD: 2 BENIGN FINDING(S) RECOMMENDATION: RECOMMENDATION: ROUTINE SCREENING COMMENT: The patient has been notified of the results by letter per SA requirements. Additional no tification policies are in place for contacting patient with suspicious or incomplete findings. Quality ID #[id number]: The [employer] recommends an annual screening mammogram for women aged 40 years or over. This facility utilizes a reminder system to ensure that all patients receive reminder letters, and/or direct phone calls for appointments. This includes reminders for routine scr eening mammograms, diagnostic mammograms, or other Breast Imaging Interventions when appropriate. Th is patient will be placed in the appropriate reminder system. The [employer] (ACR) has developed recommendations for screening MRI of the breast s in certain patient populations, to be used in conjunction with mammography. Breast MRI surveillanc e may be appropriate for women with more than 20% lifetime risk of developing breast cancer as deter mined by genetic testing, significant family history of the disease, or history of mantle radiation f or Hodgkins Disease. ACR Practice Guidelines 2008. DBT Technology DBT is a type of tomographic mammography. With conventional mammography, overlapping breast tissue ma y make lesions difficult to detect, even with good compression. DBT uses an x-ray tube that rotates a round the breast, taking images at different angles. These images are then combined to create thin sl ices of the breast that the radiologist can view as a 3D reconstruction. The [employer] unit can perform full-field digital mammograms (2D imaging); or DBT (3D imaging); or both, in a combination mode that quickly performs both the mammogram and the tomosynthesis scan while the breast is still compressed. PQRS 6045F: Fluoroscopic imaging is not utilized for breast tomosynthesis. TECHNICAL DOCUMENTATION: FINDING NUMBER: (1) ASSESSMENT: (1) JOB ID: [id number] [employer]- All Rights Reserved Reading location - IP/workstation name: [email or web address]
== END ==
LOC: WI 09:48
PROVIDERS: ATTEND Internal Medicine Geriatric Medicine
DX: Z12.31 Encounter for screening mammogram for malignant neoplasm of breast (principal)
CPT/HCPCS: 77063; 77067

== ENCOUNTER → 2019-03-16 | Outpatient (CLI) | payer MEDICARE, OTHER ==
--- NOTE | 2019-03-16 08:40 | WOMENS IMAGING REPORT ---
EXAM DESCRIPTION: 3D SCREENING MAMMO BILAT COMPLETED DATE/TIME: 03/16/2019 8:03 am REASON FOR STUDY: ROUTINE BILATERAL SCREENING;Z12.31 Z12.31 ENCNTR SCREEN MAMMOGRAM FOR MALIGNANT N EOPLASM OF SHANDA COMPARISON: 02/21/2018 and 02/11/2017. EXAM PARAMETERS: Standard craniocaudal and mediolateral oblique views of each breast recorded using digital acquisition and breast tomosynthesis. Read with the assistance of CAD. .[facility] - R2 Pediatric Care Coordinator Version 9.2 LIMITATIONS: None. FINDINGS: Findings present which are benign by mammographic criteria. No suspicious masses, calcific ations or architectural distortion. Pertinent benign findings: Stable calcifications. Benign mammographic findings may include one or more of the following: Smooth masses, popcorn/rim/coa rse calcifications, asymmetries, post-procedure changes, and lesions with long-standing stability. IMPRESSION: BENIGN MAMMOGRAPHIC FINDINGS. BIRADS 2 BREAST DENSITY: b. There are scattered areas of fibroglandular density. BIRAD: ASSESSMENT: 2 BENIGN FINDING(S) RECOMMENDATION: ROUTINE SCREENING COMMENT: The patient has been notified of the results by letter per MQSA requirements. Additional no tification policies are in place for contacting patient with suspicious or incomplete findings. Quality ID #[id number]: The [employer] recommends an annual screening mammogram for women aged 40 years or over. This facility utilizes a reminder system to ensure that all patients receive reminder letters, and/or direct phone calls for appointments. This includes reminders for routine scr eening mammograms, diagnostic mammograms, or other Breast Imaging Interventions when appropriate. Th is patient will be placed in the appropriate reminder system. TECHNICAL DOCUMENTATION: FINDING NUMBER: (1) ASSESSMENT: (1) JOB ID: [id number] [employer]- All Rights Reserved Reading location - IP/workstation name: [email or web address]
== END ==
LOC: WI 09:00
PROVIDERS: ATTEND Internal Medicine Geriatric Medicine
DX: Z12.31 Encounter for screening mammogram for malignant neoplasm of breast (principal)
CPT/HCPCS: 77063; 77067